=== PATIENT | male | born 1990 | race Caucasian/White ===

== ENCOUNTER 2018-09-05 00:17 | Emergency (ER) | payer OTHER ==
[~2018-09-05] VITALS: Ht 170.2 cm; Wt 63.5 kg
[2018-09-05 00:33] VITALS: BP 141/82
--- NOTE | 2018-09-05 00:35 | NUR ---
ED Nurse Note: PATIENT WALKED IN TO ER C/O ABCESS ON RIGHT FOREARM X1 WEEK, STATES THAT HE HAS BEEN STAYING AT AN ABANDONED HOUSE AND CLIMBING FENCES. AAO X4, VSS AT THIS TIME.
[2018-09-05] MEDS ORDERED: Augmentin 875mg Tab ORAL ONE (00:45)
[2018-09-05] MEDS ORDERED: Tetanus/Diptheria/Pertussis IM ONE (00:45)
[2018-09-05] MEDS ORDERED: AUGMENTIN 875-1 EAC1 ORAL (00:58)
[2018-09-05 01:05] VITALS: BP 141/82
--- NOTE | 2018-09-05 01:06 | NUR ---
ED Nurse Note: Pt cleared by health care Provider for discharge. DC instructions/prescription was given and explained to pt and verbalized understanding of teachings. All medical deviecs such as ID band removed. Pt is AAO x4, ambulatory and left with all personal belongings.
--- NOTE | 2018-09-05 02:14 | Emergency Room Report ---
History of Present Illness General Chief Complaint: Skin Rash/Abscess Source: Patient Present Illness HPI 27-year-old male presents ED for evaluation. Presents with pain and swelling to his right arm. States that he's been staying in an abandoned house and climbing fences. States the fence has since cut is arm and has gotten infected. Tetanus unknown. Pain is dull, 8 out of 10, nonradiating. Denies fevers or chills. Denies any discharge. No other aggravating relieving factors. Denies any other associated symptoms Allergies: Coded Allergies: No Known Allergies (Unverified , 09/05/18) Patient History Past Medical History: psych hx Past Surgical History: none Pertinent Family History: none Social History: Denies: smoking, alcohol use, drug use Immunizations: UTD Reviewed Nursing Documentation: PMH: Agreed; PSxH: Agreed Nursing Documentation-PMH History Of Psychiatric Problem: Yes - SCHIZOPHRENIA, BIPOLAR, ANXIETY, ADD, DEPRESSION Review of Systems All Other Systems: negative except mentioned in HPI Physical Exam Vital Signs Date Time Temp Pulse Resp B/P (MAP) Pulse Ox O2 Delivery O2 Flow Rate FiO2 09/05/18 00:23 98.2 85 14 99 Room Air 09/05/18 00:33 141/82 Sp02 EP Interpretation: reviewed, normal General Appearance: no apparent distress, alert, GCS 15, non-toxic Head: normocephalic Eyes: bilateral eye normal inspection, bilateral eye PERRL ENT: normal ENT inspection Neck: normal inspection Respiratory: normal inspection Cardiovascular #1: normal inspection Gastrointestinal: normal inspection Rectal: deferred Genitourinary: no CVA tenderness Musculoskeletal: back normal, gait/station normal, normal range of motion Neurologic: alert, oriented x3, responsive, motor strength/tone normal, sensory intact, speech normal Psychiatric: normal inspection Skin: other - multiple superficial abrasions to R forearm with surrounding erythema/induration. no fluctuance or discharge Lymphatic: normal inspection Medical Decision Making Diagnostic Impression: Primary Impression: Cellulitis Qualified Codes: L03.113 - Cellulitis of right upper limb ER Course Hospital Course 27-year-old male presents to ED with redness, swelling to R forearm Differential diagnoses include: Cellulitis, dermatitis, insect bite, abscess Clinical course Patient placed on stretcher. After initial history, physical exam reveals a emale in no acute distress. On exam there were multiple abrasions noted to right forearm with surrounding erythema and induration. No fluctuance or discharge. No indication for I and D at this time. Patient afebrile, nontoxic appearing. Discussed findings with patient. He'll discharged with antibiotics. Given tetanus here. Safe for discharge close outpatient follow-up. Does not have a PMD. We'll provide referrals. Patient states he does have a place to live, is declining any additional services from us Diagnosis - cellulitis stable and discharged to home with prescription for augmentin. Instructed to followup with PMD. Instructed return to ED if symptoms recur or worsen Last Vital Signs Date Time Temp Pulse Resp B/P (MAP) Pulse Ox O2 Delivery O2 Flow Rate FiO2 09/05/18 01:05 98.2 14 141/82 99 Room Air 09/05/18 00:23 85 Status: improved Disposition: HOME, SELF-CARE Condition: Stable Scripts Amoxicillin/Potassium Clav 875-125* (AUGMENTIN 875-125 TABLET*) 1 Each Tablet 1 TAB ORAL TWICE A DAY, #14 TAB Prov: Rojelio Lisa MD 09/05/18 Referrals: Angelita Kirkpatrick [facility] Patient Instructions: Cellulitis, [id number] Rojelio Lisa MD September 05, 2018 02:14
== END 2018-09-05 01:00 | disposition home or self-care (01) ==
LOC: EMR 00:40
DX: L03.113 Cellulitis of right upper limb (principal); F20.9 Schizophrenia, unspecified; F41.9 Anxiety disorder, unspecified; F31.9 Bipolar disorder, unspecified; F98.8 Other specified behavioral and emotional disorders with onset usually occurring in childhood and adolescence; Z23 Encounter for immunization
CPT/HCPCS: 90471; 90715; 99283